=== PATIENT | female | born 1955 | race Caucasian/White ===

== ENCOUNTER 2024-05-05 12:39 | Emergency (ER) | payer MEDICARE, OTHER ==
--- NOTE | 2024-05-05 13:04 | ED Physician Documentation ---
History of Present Illness - Stated complaint Stated Complaint: LOC/HEAD INJURY - Chief complaint Chief Complaint: Cardiac - History of Present Illness Timing: Prior to arrival - Additonal information Additional information: Patient is a 68-year-old female with no significant past medical history presents to the emergency department after walking up the stairs she fainted fell and hit her head. witnessed fall he said he she could not remember anything shortly after the fall for about 10 minutes. He notes she slowly came to this occurred around 0900. He states while she was at home she seemed slightly confused as she was playing with her grandson and could not remember how to play the game. She is ANO x 3 on arrival. She notes head pain but no upper or lower extremity pain. She is not on any blood thinners. She ate breakfast this morning to denies any presyncopal symptoms denies any persistent dizziness or lightheadedness symptoms. She notes persistent headache but otherwise feels back to her baseline. She denies any history of heart disease no history of syncopal episodes. She was feeling fine when she woke up this morning. PD PAST MEDICAL HISTORY - Past Medical History Past Medical History: No - Past Surgical History Past Surgical History: No - Present Medications Home Medications: Ambulatory Orders Medication Instructions Recorded Confirmed No Known Home Medications 05/05/24 05/05/24 - Allergies Allergies/Adverse Reactions: Allergies Allergy/AdvReac Type Severity Reaction Status Date / Time lactose Allergy Cramps Verified 05/05/24 12:53 tetanus and diphtheria Allergy Anaphylaxis Verified 05/05/24 12:53 toxoids - Social History Does the pt smoke?: No Smoking Status: Never smoker Does the pt drink ETOH?: No Does the pt have substance abuse?: No - Immunizations Immunizations are current?: Yes - POLST Patient has POLST: No PD ED PE NORMAL - Vitals Vital signs reviewed: Yes - General General: Alert and oriented X 3 - HEENT HEENT: Atraumatic, PERRL, EOMI - Neck Neck: Supple, no meningeal sign, C-Spine cleared by NEXUS criteria - Cardiac Cardiac: RRR, No murmur, No gallop, No rub - Respiratory Respiratory: No respiratory distress, Clear bilaterally - Abdomen Abdomen: Normal bowel sounds, Non tender, Non distended - Back Back: No CVA TTP - Derm Derm: Normal color, No rash - Neuro Neuro: Alert and oriented X 3, consumer affairs manager 2-12 intact, No motor deficit, No sensory deficit, Normal speech Eye Opening: Spontaneous Motor: Obeys Commands Verbal: Oriented GCS Score: 15 - Psych Psych: Normal mood Results - Vitals Vitals: Vital Signs - 24 hr 05/05/24 05/05/24 12:46 15:05 Temperature 36.4 C L Heart Rate 58 L 58 L Respiratory 18 18 Rate Blood Pressure 122/74 108/69 O2 Saturation 100 100 Oxygen O2 Source Room air - Labs Labs: Laboratory Tests 05/05/24 05/05/24 05/05/24 13:13 13:13 13:13 WBC 4.5 L RBC 4.37 Hgb 13.4 Hct 41.0 MCV 93.8 MCH 30.7 MCHC 32.7 RDW 13.1 Plt Count 133 MPV 12.8 H Neut # (Auto) 2.8 Lymph # (Auto) 1.1 L Hinds # (Auto) 0.5 Eos # (Auto) 0.1 Baso # (Auto) 0.0 Absolute Nucleated RBC 0.00 Nucleated RBC % 0.0 Sodium 136 Potassium 4.0 Chloride 102 Carbon Dioxide 30 Anion Gap 4.0 L BUN 10 Creatinine 0.6 Estimated GFR (MDRD) 100 Glucose 99 Calcium 9.2 Magnesium 2.0 Total Bilirubin 0.7 AST 17 ALT 13 Alkaline Phosphatase 96 Troponin I High Sens < 2.3 L Total Protein 6.5 Albumin 4.1 Globulin 2.4 Albumin/Globulin Ratio 1.7 - Rads (name of study) CT head Relevant Findings:: EMP independent interpretation of test (No acute intracranial findings) PD Medical Decision Making - ED course Complexity details: reviewed old records ED course: Patient is a 68-year-old female presenting to the emergency department who got up suddenly with up the stairs and passed out hitting her head. witnessed the fall denies any abnormal movement no incontinence she cannot remember anything for a few minutes after the fall but denies any other persistent confusion at this time she denies any persistent dizziness only some mild head pressure. She denies any numbness tingling weakness vision changes. Vitals on arrival were reassuring she is afebrile nontachycardic and normotensive. Physical exam shows normal cardiac and lung sounds good pulses in all 4 extremities and no focal neurodeficits cranial nerves III through XII intact. Patient has stable gait on ambulation. Basic labs were obtained here in the emergency department to ensure no signs of ACS given patient experienced no presyncopal symptoms before falling. Her troponin and EKG were reassuring showing no significant signs of anemia no leukocytosis concerning for infection. CT scan obtained as patient still has persistent head pain after a fall as she is over 50 could not rule out with [place] CT rules. Reviewed CT scan independently no injury acute intracranial pathology noted by radiologist as well. Updated patient on reassuring findings she is eating and drinking here in the emergency department in no acute distress patient feels safe to go home instructed patient to follow-up with PCP drink lots of fluids when she returns home symptoms most likely secondary to dehydration. Patient will return with any new or worsening symptoms including chest pain shortness of breath persistent dizziness any persistent head pain or any other new or worsening symptoms. Departure - Departure Forms: PCP List
[2024-05-05 13:07] VITALS: O2SAT 100
[2024-05-05 13:21] LABS: BASOPHILS % (AUTO) 0.9 %; EOSINOPHILS # (AUTO) 0.1 10^3/uL (0.0-0.7); EOSINOPHILS % (AUTO) 1.8 %; HGB - HEMOGLOBIN 13.4 g/dL (12.0-16.0); LYMPHOCYTES # (AUTO) 1.1 10^3/uL (1.5-3.5); LYMPHOCYTES % (AUTO) 24.7 %; MEAN CORPUSCULAR HEMOGLOBIN 30.7 pg (27.0-31.0); MEAN CORPUSCULAR HGB CONC 32.7 g/dL (32.0-36.0); MEAN CORPUSCULAR VOLUME 93.8 fL (81.0-99.0); MEAN PLATELET VOLUME 12.8 fL (7.9-10.8); MONOCYTES # (AUTO) 0.5 10^3/uL (0.0-1.0); MONOCYTES % (AUTO) 9.9 %; NEUTROPHILS # (AUTO) 2.8 10^3/uL (1.5-6.6); NEUTROPHILS % (AUTO) 62.3 %; PLT - PLATELET COUNT 133 10^3/uL (130-450); RED BLOOD COUNT 4.37 10^6/uL (4.20-5.40); RED CELL DISTRIBUTION WIDTH 13.1 % (12.0-15.0); WHITE BLOOD COUNT 4.5 x10^3/uL (4.8-10.8)
[2024-05-05 13:37] LABS: ALBUMIN 4.1 g/dL (3.2-5.5); ALBUMIN/GLOBULIN RATIO 1.7 (1.0-2.2); BILIRUBIN,TOTAL 0.7 mg/dL (0.2-1.0); CALCIUM 9.2 mg/dL (8.5-10.3); CREATININE 0.6 mg/dL (0.6-1.3); TOTAL PROTEIN 6.5 g/dL (6.4-8.9)
--- NOTE | 2024-05-05 15:40 | CT Report ---
PROCEDURE: Head WO INDICATIONS: LOC, head injury > 50 yo TECHNIQUE: Noncontrast 4.5 mm thick angled axial sections acquired from the foramen magnum to the vertex. For r adiation dose reduction, the following was used: automated exposure control, adjustment of mA and/or kV according to patient size. COMPARISON: None. FINDINGS: Image quality: Excellent. CSF spaces: Basal cisterns are patent. No extra-axial fluid collections. Ventricles are normal in size and shape. Posterior fossa arachnoid cyst measuring 3.1 x 2.5 cm. Brain: No midline shift. No intracranial masses or hemorrhage. Fajardo-white matter interface is norm al. Skull and face: Calvarium and visualized facial bones are intact, without suspicious lesions. Sinuses: Visualized sinuses and mastoids are clear. IMPRESSION: No acute intracranial pathology. Reviewed by: Javier Sprague MD on 05/05/2024 3:38 PM PDT Approved by: Javier Sprague MD on 05/05/2024 3:38 PM PDT Station ID: [id number]
[2024-05-05 16:15] VITALS: BP 98/62
== END 2024-05-05 16:19 | disposition home or self-care (01) ==
LOC: ED 12:39
DX: S09.90XA Unspecified injury of head, initial encounter (principal); W10.9XXA Fall (on) (from) unspecified stairs and steps, initial encounter; Y93.89 Activity, other specified; R55 Syncope and collapse; E86.0 Dehydration
CPT/HCPCS: 36415; 80053; 83735; 84484; 85025; 93005; 99284